=== PATIENT | female | born 1940 | race Caucasian/White ===

== ENCOUNTER → 2016-12-14 | Outpatient (CLI) | payer MEDICARE ==
[~2016-12-14] MED LIST: ASPIRIN CHILDRE81 MG PO; ASTELIN NA137 MCG/BO; BRITE-LIFE ALLE10 MG PO; CEFDINIR300 MG PO; FLONASE16 GM; LEVOTHYROXINE0.05 MG NG; PANTOPRAZOLE SO40 MG PO; PRILOSEC20 M1 PO; Prilosec20 MG PO; SUDAFED30 MG PO; VYTORIN 10 MG-21 TAB PO; ZYRTEC-D 5 MG-11 TER PO
[2016-12-14 12:37] LABS: HEMOGLOBIN 14.2 g/dL (12.2-16.2); LYMPH # 1.2 K/mm3 (0.7-4.5); LYMPH % 22.1 % (10-50.0)
[2016-12-14 12:50] LABS: BUN 5 mg/dL (7-18); GFR (ESTIMATED) 97 ML/MIN (59-)
--- NOTE | 2016-12-14 13:43 | RADIOLOGY REPORT PS360 ---
CHEST(2 VIEWS-NOT PORTABLE) HISTORY: SOB, PALPATATIONS ORDERING PHYSICIAN: Job Dunn MD PATIENT AGE: 76 years COMPARISON: 02/17/2014 FINDINGS: The cardiomediastinal silhouette and pulmonary vascularity are within normal limits. The lungs are clear without infiltrates, suspicious nodules, or pleural effusions. Surgical clips are present in the right axilla and right upper quadrant.. Lumbar scoliosis convex right IMPRESSION: No acute finding.
== END ==
LOC: LAB 12:04
PROVIDERS: Internal Medicine Adolescent Medicine
DX: R06.02 Shortness of breath (principal); R00.2 Palpitations

== ENCOUNTER → 2016-12-17 | Outpatient (CLI) | payer MEDICARE ==
--- NOTE | 2016-12-22 09:48 | RADIOLOGY REPORT PS360 ---
CT CHEST W/ CONTRAST INDICATION: Follow-up breast cancer, shortness of breath SOB, BREAST CA ORDERING PHYSICIAN: Job Dunn MD PATIENT AGE: 76 years COMPARISON: 06/24/2016 TECHNIQUE: Axial images are obtained with contrast. Sagittal and coronal reformatted images are reviewed as well. FINDINGS:Contrast was injected into the left upper extremity showing collateral vessels about the neck and supraclavicular region. There is small caliber of the left brachiocephalic vein consistent with prior thrombosis with partial recanalization. There is increased density about the C6, C7, and T1 vertebral bodies which may be due to prominent basivertebral plexus. Cannot due to possibility of sclerotic lesions at these areas. Consider unenhanced CT scan of the lower cervical and upper thoracic spine to sure this is not represent blastic metastasis. The thyroid gland is somewhat prominent on both sides. There are few scattered small mediastinal lymph nodes. No mediastinal or hilar adenopathy or mass is evident. Normal heart size. No pericardial effusion or thickening. There is mild biapical fibrotic change. Scattered peripheral areas of increased density are present in the right upper lobe anteriorly and right lung base medially as well as left lung base consistent with mild fibrotic changes. Small air cyst is present in the right lower lobe and in the right middle lobe. No lobar consolidation or collapse. No acute disease. No central obstructing lesion. There is hyperinflation with attenuation of peripheral pulmonary vessels consistent with obstructive chronic bronchitis. Calcified granuloma is present in the left upper lobe posteriorly. No acute bony anomalies apparent. No evidence of aortic aneurysm. No evidence of central pulmonary embolus. There are postsurgical changes of the right breast and right axilla. Upper abdominal images are unremarkable. There is been prior cholecystectomy. IMPRESSION: 1. No acute finding. 2. Obstructive chronic bronchitis suspected with old granulomatous disease and scattered areas of fibrosis. 3. Prior right breast and axillary surgery 4. Suspect prior thrombosis with recanalization of the left subclavian vein with prominent collateral vessels about this region. 5. Prominent basal vertebral plexus/paravertebral veins at C6, C7, and T1 versus blastic metastasis. Consider nonenhanced CT of the cervical and upper thoracic spine for confirmation
== END ==
LOC: RAD 14:28
DX: R06.02 Shortness of breath (principal); Z85.3 Personal history of malignant neoplasm of breast
CPT/HCPCS: Q9967

== ENCOUNTER → 2017-01-14 | Outpatient (CLI) | payer MEDICARE ==
[2017-01-14 11:18] LABS: BUN 6 mg/dL (7-18)
[2017-01-14 11:21] LABS: GFR (ESTIMATED) 97 ML/MIN (59-)
--- NOTE | 2017-01-14 17:55 | RADIOLOGY REPORT PS360 ---
CTA-CHEST HISTORY: SOB ORDERING PHYSICIAN: Job Dunn MD PATIENT AGE: 76 years TECHNIQUE: Helical acquisition obtained following the bolus administration of 60 mL of Isovue 370 followed by a saline bolus. Axial, sagittal, and coronal reformatted images are generated and reviewed. COMPARISON: 12/17/2016 FINDINGS: There is no evidence of pulmonary embolus. No evidence of aortic aneurysm or dissection. 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 Biapical fibrotic changes are present. There is hyperinflation with attenuation of peripheral pulmonary vessels consistent with obstructive chronic bronchitis. A calcified granuloma is present in the left upper lobe. No suspicious nodules. No effusions or infiltrates. There has been prior right breast surgery and right axillary clips are also noted. 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 There remains some sclerosis about the C7 vertebral body as before IMPRESSION: 1. Overall no significant change compared to 12/17/2016. 2. Obstructive chronic bronchitis with old granulomatous disease and scattered areas of fibrosis. 3. 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 AORTA:No acute finding. No thoracic aortic aneurysm or dissection evident LUNGS:Unremarkable. No mass or consolidation. PLEURAL SPACES:No significant effusion. No evidence of pneumothorax. HEART:Unremarkable. Normal heart size. No significant pericardial effusion. MEDIASTINAL AND HILAR STRUCTURES:No mediastinal or hilar mass evident. No dominant adenopathy. BONY STRUCTURES:No acute bony abnormalities apparent LYMPH NODES:No enlarged lymph nodes evident UPPER ABDOMEN:Unremarkable IMPRESSION:
== END ==
LOC: RAD 10:51
PROVIDERS: Nurse Practitioner Family
DX: R07.89 Other chest pain (principal); R06.02 Shortness of breath; R00.2 Palpitations
CPT/HCPCS: Q9967

== ENCOUNTER → 2017-02-01 | Outpatient (CLI) | payer MEDICARE ==
--- NOTE | 2017-02-01 17:12 | RADIOLOGY REPORT PS360 ---
ABDOMEN-FLAT UPRIGHT HISTORY: EPIGASTRIC PAIN ORDERING PHYSICIAN: Job Dunn MD PATIENT AGE: 76 years COMPARISON: None FINDINGS: No obstruction or free air. The bowel gas pattern is nonspecific. There is a rounded calcific density overlying the right mid abdominal region which is due to a calcification within the liver. Left upper quadrant calcifications are present overlying the kidney and may represent nephrolithiasis and/or vascular calcification. There are degenerative changes in the lumbar spine with levoscoliosis. IMPRESSION: 1. Possible left nephrolithiasis. 2. No intestinal obstruction or free air 3. Levoscoliosis of the lumbar spine
== END ==
LOC: RAD 12:04
DX: R10.13 Epigastric pain (principal)

== ENCOUNTER → 2017-02-05 | Outpatient (CLI) | payer MEDICARE ==
--- NOTE | 2017-02-05 16:29 | RADIOLOGY REPORT PS360 ---
US ABD(COMPLETE-MULTI ORGANS HISTORY: RLQ PAIN ORDERING PHYSICIAN: Job Dunn MD PATIENT AGE: 76 years COMPARISON: None FINDINGS: PANCREAS:Unremarkable. No obvious mass or abnormal fluid collection. No ductal dilatation LIVER:No focal liver lesions demonstrated. Homogeneous echogenicity. No intrahepatic biliary ductal dilatation evident RIGHT KIDNEY:Unremarkable. Normal size and echogenicity. No hydronephrosis LEFT KIDNEY:Unremarkable. No hydronephrosis. Normal size and echogenicity. GALLBLADDER:Status post cholecystectomy. Common bile duct is normal at 6 mm. AORTA:No evidence of aneurysmal dilatation. SPLEEN:Unremarkable. Normal size and echogenicity ASCITES:None demonstrated. IMPRESSION: Prior cholecystectomy otherwise negative abdominal ultrasound
== END ==
LOC: RAD 09:15
DX: R10.31 Right lower quadrant pain (principal)